=== PATIENT | male | born 1980 | race Caucasian/White ===

== ENCOUNTER 2022-04-14 08:26 | Emergency (ER) | payer MEDICAID ==
[~2022-04-14] VITALS: Ht 182.9 cm; Wt 108.9 kg
== END 2022-04-14 14:48 | disposition home or self-care (01) ==
LOC: ER 08:26
DX: F15.950 Other stimulant use, unspecified with stimulant-induced psychotic disorder with delusions (principal); Z91.14 Patient's other noncompliance with medication regimen
CPT/HCPCS: A9270

== ENCOUNTER 2022-04-14 20:39 | Emergency (ER) | payer MEDICAID ==
[~2022-04-14] VITALS: Ht 182.9 cm; Wt 99.8 kg
== END 2022-04-14 23:25 | disposition home or self-care (01) ==
LOC: ER 20:39
DX: F31.9 Bipolar disorder, unspecified (principal); F41.9 Anxiety disorder, unspecified; F17.290 Nicotine dependence, other tobacco product, uncomplicated
CPT/HCPCS: A9270